=== PATIENT | male | born 1965 | race Caucasian/White ===

== ENCOUNTER 2020-11-12 17:43 | Emergency (ER) | payer MEDICAID ==
[~2020-11-12] VITALS: Ht 182.9 cm; Wt 74.1 kg
[~2020-11-12 17:43] MED LIST: CLOP75TA34 PO; DOCU-28 PO; GABA-532 PO; HYDR-4353 PO; METH-360 PO
[2020-11-12 19:16] VITALS: BP 119/76
== END 2020-11-12 20:03 | disposition home or self-care (01) ==
LOC: ER 19:51
DX: L30.9 Dermatitis, unspecified (principal); Z88.1 Allergy status to other antibiotic agents; Z88.8 Allergy status to other drugs, medicaments and biological substances; Z79.899 Other long term (current) drug therapy
CPT/HCPCS: 99282

== ENCOUNTER 2021-03-13 15:29 | Inpatient (IN) | payer MEDICAID ==
[~2021-03-13] VITALS: Ht 182.9 cm; Wt 70.9 kg
[2021-03-13] VITALS (10 sets, daily range): BP systolic 103–118; BP diastolic 55–67
[2021-03-13 17:08] LABS: BASOPHILS % (AUTO) 0.5 % (0-1); EOSINOPHILS # (AUTO) 0.1 X10'3 (0-0.9); EOSINOPHILS % (AUTO) 0.7 % (0-6); LYMPHOCYTES # (AUTO) 1.5 X10'3 (1.1-4.8); LYMPHOCYTES % (AUTO) 14.7 % (21-51); MEAN CORPUSCULAR HEMOGLOBIN 29.2 PG (27.0-31.0); MEAN CORPUSCULAR HGB CONC 32.5 g/dL (33.0-36.5); MEAN CORPUSCULAR VOLUME 89.8 FL (78-98); MEAN PLATELET VOLUME 6.9 FL (7.4-10.4); MONOCYTES # (AUTO) 1.1 X10'3 (0-0.9); MONOCYTES % (AUTO) 10.5 % (2-12); NEUTROPHILS # (AUTO) 7.7 X10'3 (1.8-7.7); NEUTROPHILS % (AUTO) 73.6 % (42-75); PLATELET COUNT 388 X10'3 (140-440); RED BLOOD COUNT 1.88 X10'6 (4.70-6.10); RED CELL DISTRIBUTION WIDTH 15.2 % (11.5-14.5); WHITE BLOOD COUNT 10.4 X10'3 (4.5-11.0)
[2021-03-13 17:12] LABS: HEMATOCRIT 16.9 % (42.0-52.0); HEMOGLOBIN 5.5 g/dl (14.0-17.9)
[2021-03-13 17:22] LABS: ALANINE AMINOTRANSFERASE 18 U/L (12-78); ALBUMIN/GLOBULIN RATIO 0.8 (1.1-1.5); ALKALINE PHOSPHATASE 103 IU/L (46-116); ANION GAP 10 (8-16); ASPARTATE AMINO TRANSFERASE 8 U/L (10-37); BILIRUBIN,TOTAL 0.2 MG/DL (0.1-1.0); BLOOD UREA NITROGEN 13 MG/DL (7-18); BUN/CREATININE RATIO 13.4 (5.4-32.0); CALCIUM 8.1 MG/DL (8.5-10.1); CHLORIDE 104 MMOL/L (99-107); CREATININE 0.97 MG/DL (0.60-1.10); GLUCOSE 157 MG/DL (70-104); POTASSIUM 3.8 MMOL/L (3.5-5.1); SODIUM 140 MMOL/L (135-145); TOTAL CARBON DIOXIDE 25.7 MMOL/L (24-32); TOTAL PROTEIN 6.9 G/DL (6.4-8.2); eGFR 80 ML/MIN
[2021-03-13 17:29] LABS: TROPONIN I < 0.04 NG/ML (0.0-0.05)
[2021-03-13] MEDS ORDERED: ATOR40TA72 PO (17:54)
[2021-03-13] MEDS ORDERED: ASPI-1397 PO (17:54)
[2021-03-13] MEDS ORDERED: CARV3.122 PO (17:54)
[2021-03-13] MEDS ORDERED: MONT10TA32 PO (17:54)
[2021-03-13] MEDS ORDERED: METH-798 PO (17:54)
[2021-03-13] MEDS ORDERED: ondansetron/PF 4mg/2ml inj IV PRN (17:55)
[2021-03-13] MEDS ORDERED: magnesium 2GM in 50ml NS 50 ML IV PRN (17:55)
[2021-03-13] MEDS ORDERED: HYDROcodone/acetaminophen 5mg/325mg tablet PO PRN (17:55)
[2021-03-13] MEDS: normal saline 1000ml 1,000 ML IV SCH (17:55)
[2021-03-13] MEDS ORDERED: acetaminophen 325mg tablet PO PRN ×2 (17:55)
[2021-03-13] MEDS ORDERED: magnesium hydroxide 30ml (MOM) UD suspension PO PRN (17:55)
[2021-03-13] MEDS ORDERED: mag hydrox/Alum hydrox/simeth 30ml oral suspension PO PRN (17:55)
[2021-03-13] MEDS ORDERED: potassium Cl 20 mEq SR tablet PO PRN ×2 (17:55)
[2021-03-13] MEDS ORDERED: potassium Cl 40MEQ/1/2NS 520ml 520 ML IV PRN ×2 (17:55)
[2021-03-13] MEDS ORDERED: magnesium Cl slow-release 64mg tablet PO PRN (17:55)
[2021-03-13] MEDS ORDERED: bisacodyl 10mg suppository rectal RC PRN (17:55)
[2021-03-13] MEDS ORDERED: magnesium 4gm in 100ml NS 100 ML IV PRN (17:55)
[2021-03-13 18:25] LABS: HEMOGLOBIN A1C 5.3 % (4.5-6.2)
[2021-03-13] MEDS ORDERED: HYDROcodone/acetaminophen 10/325mg tab PO PRN (18:50)
[2021-03-13 19:28] LABS: % IRON SATURATION 3 % (11-46); IRON 11 UG/DL (53-167); TOTAL IRON BINDING CAPACITY 349 UG/DL (259-388)
[2021-03-13] MEDS: K and/or MAG REPLACEMENT MC SCH (20:00)
[2021-03-13] MEDS ORDERED: cyclobenzaprine 10mg tablet PO PRN (21:00)
[2021-03-13] MEDS ORDERED: temazepam 15mg capsule PO PRN (21:00)
[2021-03-13] MEDS: montelukast 10mg tablet PO SCH (23:35)
[2021-03-13] MEDS: clopidogrel 75mg tablet PO SCH (23:35)
[2021-03-13] MEDS: heparin, porcine 5000 units/ml vial SQ SCH (23:37)
[2021-03-13] MEDS: diatr meglu/diatrizoate 30ml oral sol.-(3 dose) bottle PO SCH (23:38)
[2021-03-13] MEDS: HYDROcodone/acetaminophen 10/325mg tab PO PRN (23:45)
[2021-03-14] VITALS (16 sets, daily range): BP systolic 99–125; BP diastolic 49–73
--- NOTE | 2021-03-14 06:25 | NUR ---
received report from estephania olmstead
[2021-03-14 06:39] LABS: MEAN CORPUSCULAR HEMOGLOBIN 29.7 PG (27.0-31.0); MEAN CORPUSCULAR HGB CONC 33.7 g/dL (33.0-36.5); MEAN CORPUSCULAR VOLUME 88.1 FL (78-98); MEAN PLATELET VOLUME 7.5 FL (7.4-10.4); PLATELET COUNT 310 X10'3 (140-440); RED BLOOD COUNT 2.36 X10'6 (4.70-6.10); RED CELL DISTRIBUTION WIDTH 14.7 % (11.5-14.5); WHITE BLOOD COUNT 8.6 X10'3 (4.5-11.0)
[2021-03-14 06:46] LABS: ALBUMIN 2.5 G/DL (3.4-5.0); ANION GAP 9 (8-16); BLOOD UREA NITROGEN 10 MG/DL (7-18); BUN/CREATININE RATIO 13.9 (5.4-32.0); CALCIUM 7.8 MG/DL (8.5-10.1); CHLORIDE 110 MMOL/L (99-107); CHOL/HDL RATIO 2.7 (0.00-4.99); CHOLESTEROL 68 MG/DL (0-200); CREATININE 0.72 MG/DL (0.60-1.10); GLUCOSE 90 MG/DL (70-104); HDL CHOLESTEROL 25 MG/DL (35-60); LDL CHOLESTEROL 30 MG/DL (50-100); POTASSIUM 4.1 MMOL/L (3.5-5.1); SODIUM 142 MMOL/L (135-145); TOTAL CARBON DIOXIDE 23.4 MMOL/L (24-32); TRIGLYCERIDES 69 MG/DL (20-135); eGFR > 90 ML/MIN
[2021-03-14 06:47] LABS: HEMATOCRIT 20.8 % (42.0-52.0)
[2021-03-14] MEDS: K and/or MAG REPLACEMENT MC SCH ×2 (07:03→20:00)
[2021-03-14] MEDS: carVEDilol 3.125mg tablet PO SCH ×2 (07:03→17:18)
[2021-03-14] MEDS: diatr meglu/diatrizoate 30ml oral sol.-(3 dose) bottle PO SCH ×2 (07:06→11:20)
[2021-03-14] MEDS: atorvastatin 20mg tablet PO SCH (07:08)
[2021-03-14] MEDS: normal saline 1000ml 1,000 ML IV SCH ×2 (07:13→14:26)
[2021-03-14] MEDS: aspirin 81mg tablet.DR PO SCH (08:00)
[2021-03-14] MEDS: heparin, porcine 5000 units/ml vial SQ SCH ×2 (08:00→21:51)
[2021-03-14] MEDS: nicotine 21mg patch - 24 hr TD SCH (08:36)
[2021-03-14 09:00] LABS: OCCULT BLOOD STOOL NEGATIVE (Neg)
[2021-03-14] MEDS ORDERED: iohexol 300mg/ml 100ml inj. ONE (09:17)
[2021-03-14] MEDS: HYDROcodone/acetaminophen 10/325mg tab PO PRN ×3 (09:26→21:51)
--- NOTE | 2021-03-14 11:30 | NUR ---
scanner on computer not working to scan med into [email or web address], checked meds prior to admin
[2021-03-14] MEDS ORDERED: fentaNYL/PF 50MCG/1 ML 2ML syringe ONE (15:50)
[2021-03-14] MEDS ORDERED: MIDAZolam 1 MG/ML 5ML VIAL ONE (15:51)
[2021-03-14] MEDS ORDERED: LIDOcaine Viscous 15ml cup ONE (15:51)
--- NOTE | 2021-03-14 17:53 | NUR ---
received report from [facility]
--- NOTE | 2021-03-14 18:13 | NUR ---
gave report to estephania bach
--- NOTE | 2021-03-14 19:00 | NUR ---
talked to Dr. Locke - pt will stay the night, recheck blood levels in am and discharge if stable. notified patient. eating dinner sitting straight up, assisting.
[2021-03-14] MEDS: clopidogrel 75mg tablet PO SCH (21:50)
[2021-03-14] MEDS: montelukast 10mg tablet PO SCH (21:50)
[2021-03-15] MEDS: normal saline 1000ml 1,000 ML IV SCH (02:10)
[2021-03-15] MEDS: HYDROcodone/acetaminophen 10/325mg tab PO PRN ×2 (02:11→07:22)
[2021-03-15 06:00] VITALS: BP 100/63
--- NOTE | 2021-03-15 06:13 | NUR ---
reported to days. noted pt resting w/o distress. anticipate discharge early this am.
--- NOTE | 2021-03-15 06:15 | NUR ---
received report from estephania bach
[2021-03-15 07:02] LABS: HEMATOCRIT 24.5 % (42.0-52.0); HEMOGLOBIN 8.3 g/dl (14.0-17.9); MEAN CORPUSCULAR HEMOGLOBIN 29.9 PG (27.0-31.0); MEAN CORPUSCULAR HGB CONC 34.1 g/dL (33.0-36.5); MEAN CORPUSCULAR VOLUME 87.8 FL (78-98); MEAN PLATELET VOLUME 7.7 FL (7.4-10.4); PLATELET COUNT 322 X10'3 (140-440); RED BLOOD COUNT 2.79 X10'6 (4.70-6.10); RED CELL DISTRIBUTION WIDTH 15.3 % (11.5-14.5); WHITE BLOOD COUNT 9.5 X10'3 (4.5-11.0)
[2021-03-15] MEDS: aspirin 81mg tablet.DR PO SCH (07:20)
[2021-03-15] MEDS: atorvastatin 20mg tablet PO SCH (07:20)
[2021-03-15] MEDS: carVEDilol 3.125mg tablet PO SCH (07:20)
[2021-03-15] MEDS: nicotine 21mg patch - 24 hr TD SCH (07:22)
[2021-03-15] MEDS: heparin, porcine 5000 units/ml vial SQ SCH (07:24)
[2021-03-15 07:28] LABS: ALBUMIN 2.4 G/DL (3.4-5.0); ANION GAP 10 (8-16); BLOOD UREA NITROGEN 9 MG/DL (7-18); BUN/CREATININE RATIO 12.5 (5.4-32.0); CHLORIDE 109 MMOL/L (99-107); CREATININE 0.72 MG/DL (0.60-1.10); GLUCOSE 81 MG/DL (70-104); MAGNESIUM 2.2 MG/DL (1.5-2.4); POTASSIUM 4.2 MMOL/L (3.5-5.1); SODIUM 142 MMOL/L (135-145); TOTAL CARBON DIOXIDE 22.6 MMOL/L (24-32); eGFR > 90 ML/MIN
[2021-03-15] MEDS: K and/or MAG REPLACEMENT MC SCH (08:00)
[2021-03-15] MEDS ORDERED: NICO-687 TD (09:01)
[2021-03-15] MEDS ORDERED: PANT-47 PO (09:01)
--- NOTE | 2021-03-15 09:45 | NUR ---
pt d/c with instructions, understanding of instructions and w/all belongings in wheelchair accompanied by to private vehicle to go home and f/u w/pcp
== END 2021-03-15 09:30 | disposition home or self-care (01) | DRG 254 ==
LOC: ER 15:29 → ED HOLD 17:54 → ORTHO 4S 20:50 → OBSVTOIN 03-14 08:00
PROVIDERS: ADMIT Family Medicine; ATTEND Family Medicine
PROC: 30233N1 Transfusion of Nonautologous Red Blood Cells into Peripheral Vein, Percutaneous Approach (ICD-10-PCS; 2021-03-13)
PROC: 0DB68ZX Excision of Stomach, Via Natural or Artificial Opening Endoscopic, Diagnostic (ICD-10-PCS; principal; 2021-03-14)
DX: D49.0 Neoplasm of unspecified behavior of digestive system (principal); J43.9 Emphysema, unspecified; D64.9 Anemia, unspecified; E78.5 Hyperlipidemia, unspecified; F17.210 Nicotine dependence, cigarettes, uncomplicated; G89.29 Other chronic pain; I10 Essential (primary) hypertension; I25.10 Atherosclerotic heart disease of native coronary artery without angina pectoris; I25.2 Old myocardial infarction; Z83.3 Family history of diabetes mellitus; Z95.5 Presence of coronary angioplasty implant and graft; Z88.1 Allergy status to other antibiotic agents
CPT/HCPCS: 36415; 36430; 43239; 71260; 74177; 80048; 80053; 80061; 82272; 82607; 83036; 83540; 83550; 83735; 83880; 84443; 84484; 85025; 85027; 85610; 86885; 86900; 86901; 86920; 87081; 93005; 99152; 99153; 99285; A4620; G0378; J1644; J2250; J3010; J7030; J7040; P9016; Q9963; Q9967

== ENCOUNTER 2021-03-29 17:12 | Emergency (ER) | payer MEDICAID ==
[~2021-03-29] VITALS: Ht 182.9 cm; Wt 71.4 kg
[~2021-03-29 17:12] MED LIST changes: +ASPI-1397 PO; +ATOR40TA72 PO; +CARV3.122 PO; -GABA-532 PO; -METH-360 PO; +METH-798 PO; +MONT10TA32 PO; +NICO-687 TD; +PANT-47 PO
[2021-03-29] MEDS ORDERED: aspirin 81mg tab.chew PO ONE (17:30)
[2021-03-29] MEDS: nitroGLYCERIN 0.4mg SUBLingual tab SL PRN ×2 (17:41→17:48)
[2021-03-29 17:48] LABS: BASOPHILS # (AUTO) 0.1 X10'3 (0-0.2); BASOPHILS % (AUTO) 0.7 % (0-1); EOSINOPHILS # (AUTO) 0.1 X10'3 (0-0.9); EOSINOPHILS % (AUTO) 1.1 % (0-6); LYMPHOCYTES % (AUTO) 20.3 % (21-51); MEAN CORPUSCULAR HEMOGLOBIN 28.5 PG (27.0-31.0); MEAN CORPUSCULAR HGB CONC 33.3 g/dL (33.0-36.5); MEAN CORPUSCULAR VOLUME 85.7 FL (78-98); MEAN PLATELET VOLUME 7.1 FL (7.4-10.4); MONOCYTES # (AUTO) 1.1 X10'3 (0-0.9); MONOCYTES % (AUTO) 11.1 % (2-12); NEUTROPHILS # (AUTO) 6.4 X10'3 (1.8-7.7); NEUTROPHILS % (AUTO) 66.8 % (42-75); PLATELET COUNT 393 X10'3 (140-440); RED BLOOD COUNT 2.32 X10'6 (4.70-6.10); RED CELL DISTRIBUTION WIDTH 16.5 % (11.5-14.5); WHITE BLOOD COUNT 9.6 X10'3 (4.5-11.0)
[2021-03-29 17:51] LABS: HEMOGLOBIN 6.6 g/dl (14.0-17.9)
[2021-03-29 17:52] LABS: HEMATOCRIT 19.9 % (42.0-52.0)
[2021-03-29 17:53] LABS: PARTIAL THROMBOPLASTIN TIME 24 SECONDS (22-32)
[2021-03-29 17:56] LABS: ALANINE AMINOTRANSFERASE 19 U/L (12-78); ALBUMIN 2.8 G/DL (3.4-5.0); ALBUMIN/GLOBULIN RATIO 0.7 (1.1-1.5); ALKALINE PHOSPHATASE 105 IU/L (46-116); ANION GAP 8 (8-16); ASPARTATE AMINO TRANSFERASE 12 U/L (10-37); BILIRUBIN,TOTAL 0.2 MG/DL (0.1-1.0); BLOOD UREA NITROGEN 13 MG/DL (7-18); BUN/CREATININE RATIO 15.3 (5.4-32.0); CALCIUM 7.8 MG/DL (8.5-10.1); CHLORIDE 106 MMOL/L (99-107); CREATININE 0.85 MG/DL (0.60-1.10); POTASSIUM 3.9 MMOL/L (3.5-5.1); SODIUM 139 MMOL/L (135-145); TOTAL CARBON DIOXIDE 25.4 MMOL/L (24-32); TOTAL PROTEIN 6.6 G/DL (6.4-8.2); eGFR > 90 ML/MIN
[2021-03-29 17:58] LABS: GLUCOSE 137 MG/DL (70-104)
[2021-03-29] MEDS ORDERED: potassium Cl 40MEQ/1/2NS 520ml 520 ML IV PRN ×2 (19:40)
[2021-03-29] MEDS: normal saline 1000ml 1,000 ML IV SCH (19:40)
[2021-03-29] MEDS ORDERED: magnesium Cl slow-release 64mg tablet PO PRN (19:40)
[2021-03-29] MEDS ORDERED: potassium Cl 20 mEq SR tablet PO PRN ×2 (19:40)
[2021-03-29] MEDS ORDERED: ondansetron/PF 4mg/2ml inj IV PRN (19:40)
[2021-03-29] MEDS ORDERED: mag hydrox/Alum hydrox/simeth 30ml oral suspension PO PRN (19:40)
[2021-03-29] MEDS ORDERED: magnesium 2GM in 50ml NS 50 ML IV PRN (19:40)
[2021-03-29] MEDS ORDERED: magnesium hydroxide 30ml (MOM) UD suspension PO PRN (19:40)
[2021-03-29] MEDS ORDERED: magnesium 4gm in 100ml NS 100 ML IV PRN (19:40)
[2021-03-29] MEDS ORDERED: acetaminophen 325mg tablet PO PRN ×2 (19:40)
[2021-03-29] MEDS ORDERED: K and/or MAG REPLACEMENT MC SCH (20:00)
[2021-03-29] MEDS ORDERED: pantoprazole 40 MG vial IV SCH (20:00)
[2021-03-29 20:06] VITALS: BP 103/63
[2021-03-29] MEDS ORDERED: PANT40TA54 PO (20:33)
[2021-03-29 20:38] VITALS: BP 110/61
[2021-03-29] MEDS ORDERED: docusate sod 100mg capsule PO PRN (20:45)
[2021-03-29] MEDS ORDERED: HYDROcodone/acetaminophen 10/325mg tab PO PRN (20:45)
[2021-03-29] MEDS ORDERED: cyclobenzaprine 10mg tablet PO PRN (20:45)
[2021-03-29 21:00] VITALS: BP 108/54
[2021-03-29] MEDS ORDERED: montelukast 10mg tablet PO SCH (21:00)
[2021-03-29] MEDS ORDERED: temazepam 15mg capsule PO PRN (21:00)
[2021-03-29 22:00] VITALS: BP 110/58
[2021-03-30 05:28] VITALS: BP 110/65
[2021-03-30] MEDS: normal saline 1000ml 1,000 ML IV SCH (05:40)
--- NOTE | 2021-03-30 06:37 | NUR ---
Pt upset this AM because he states he feels like [facility] is "doing nothing" in regards to his medical complaints. Patient is upset with hospitalist because he felt she was "rude" and "dismissive." Pt states he knows why he's bleeding and that he has an appointment next week for surgery. I explained risks and benefits of leaving AMA. Call placed to Dr. Gordon and I explained that he wanted to go home. She stated she was not OK with him leaving and that she didn't want him to leave. I explained that he was awake, alert, and oriented x 4 and that I could not hold him against his will. I asked if she would like to come talk to the patient to discuss her POC and address his issues. She stated that she would not be coming and that he would have to sign out AMA. I explained to her that he has to be advised of risks and benefits by the hospitalist to make an informed decision. Pt then stated he was not going to wait around for her to come talk to him. IV was dc'd by RN. AMA form was signed by patient and witnessed by me. Patient called his to come pick him up and he left ED ambulatory with steady gait and no medical complaints voiced.
[2021-03-30] MEDS ORDERED: carVEDilol 3.125mg tablet PO SCH (07:30)
[2021-03-30] MEDS ORDERED: nicotine 21mg patch - 24 hr TD SCH (08:00)
[2021-03-30] MEDS ORDERED: atorvastatin 20mg tablet PO SCH (08:00)
[2021-04-06 12:09] LABS: OCCULT BLOOD STOOL NEGATIVE (Neg)
== END 2021-03-30 06:58 | disposition left against medical advice (07) ==
LOC: ER 17:12 → ED HOLD 19:37 → UNDOADMOB 19:37 → UNDODISOB 03-30 07:30
DX: D64.9 Anemia, unspecified (principal); C22.9 Malignant neoplasm of liver, not specified as primary or secondary; R07.89 Other chest pain; R00.2 Palpitations; Z88.1 Allergy status to other antibiotic agents; Z88.8 Allergy status to other drugs, medicaments and biological substances; Z79.82 Long term (current) use of aspirin; Z79.899 Other long term (current) drug therapy
CPT/HCPCS: 36415; 36430; 71045; 80053; 82272; 83880; 84484; 85025; 85610; 85730; 86885; 86900; 86901; 86920; 93005; 96361; 96374; 99285; C9113; J7030; P9016

== ENCOUNTER 2021-04-10 15:00 | Outpatient (CLI) | payer MEDICAID ==
[~2021-04-10 15:00] MED LIST changes: +PANT40TA54 PO
[2021-04-10 15:25] LABS: BASOPHILS # (AUTO) 0.1 X10'3 (0-0.2); BASOPHILS % (AUTO) 0.6 % (0-1); EOSINOPHILS # (AUTO) 0.2 X10'3 (0-0.9); EOSINOPHILS % (AUTO) 2.3 % (0-6); LYMPHOCYTES % (AUTO) 20.8 % (21-51); MEAN CORPUSCULAR HEMOGLOBIN 27.2 PG (27.0-31.0); MEAN CORPUSCULAR VOLUME 82.6 FL (78-98); MONOCYTES # (AUTO) 1.3 X10'3 (0-0.9); NEUTROPHILS # (AUTO) 6.2 X10'3 (1.8-7.7); NEUTROPHILS % (AUTO) 63.3 % (42-75); PLATELET COUNT 352 X10'3 (140-440); RED BLOOD COUNT 2.56 X10'6 (4.70-6.10); RED CELL DISTRIBUTION WIDTH 17.7 % (11.5-14.5); WHITE BLOOD COUNT 9.8 X10'3 (4.5-11.0)
[2021-04-10 15:34] LABS: HEMATOCRIT 21.2 % (42.0-52.0)
== END 2021-04-10 23:59 | disposition home or self-care (01) ==
LOC: LAB 15:00
PROVIDERS: ATTEND Surgery
DX: K25.4 Chronic or unspecified gastric ulcer with hemorrhage (principal)
CPT/HCPCS: 36415; 85025

== ENCOUNTER → 2021-04-11 | Emergency (ER) | payer MEDICAID ==
[~2021-04-11] MED LIST changes: -PANT-47 PO
== END | disposition left against medical advice (07) ==
LOC: ER 19:28
DX: R07.89 Other chest pain (principal); Z53.21 Procedure and treatment not carried out due to patient leaving prior to being seen by health care provider
CPT/HCPCS: 93005